=== PATIENT | female | born 1950 | race Caucasian/White ===

== ENCOUNTER 2022-12-30 23:45 | Inpatient (IN) | payer MEDICARE, OTHER ==
[~2022-12-30] VITALS: Ht 157.5 cm; Wt 53.1 kg
[2022-12-31] VITALS (8 sets, daily range): BP systolic 117–135; BP diastolic 43–58; TEMP 97–98.3; O2SAT 95–96
[2022-12-31] MEDS ORDERED: ATOR40TA PO (00:33)
[2022-12-31] MEDS ORDERED: METF-440 PO (00:33)
[2022-12-31] MEDS ORDERED: FERR325T28 PO (00:33)
[2022-12-31] MEDS ORDERED: OMEP40CA21 PO (00:33)
[2022-12-31] MEDS ORDERED: AMLO-212 PO (00:33)
[2022-12-31] MEDS ORDERED: LOSA25TA27 PO (00:33)
[2022-12-31] MEDS ORDERED: FAMO40TA7 PO (00:33)
[2022-12-31] MEDS ORDERED: LORA0.5T48 PO (00:33)
[2022-12-31] MEDS ORDERED: VIT1TABL46 PO (00:33)
[2022-12-31] MEDS ORDERED: LINA5TAB PO (00:33)
[2022-12-31] MEDS ORDERED: ONDANSETRON 4 MG/2 ML VIAL ONE (00:38)
[2022-12-31] MEDS ORDERED: HYDROMORPHONE 1 MG/1 ML DISP.SYRIN ONE ×2 (00:39→02:19)
[2022-12-31] MEDS ORDERED: ONDANSETRON 4 MG/2 ML VIAL IV ONE (00:45)
[2022-12-31] MEDS ORDERED: HYDROMORPHONE 1 MG/1 ML DISP.SYRIN IV ONE ×2 (00:45→02:30)
[2022-12-31] MEDS ORDERED: IV NORMAL SALINE 1000 ML BAG IV ONE (00:45)
[2022-12-31 00:50] LABS: BASOPHILS # (AUTO) 0.1 K/UL (0.0-0.2); DIFFERENTIAL COMMENT 1; HEMATOCRIT 34.1 % (31.2-41.9); HEMOGLOBIN 11.5 g/dL (10.9-14.3); LYMPHOCYTES # (AUTO) 1.4 K/uL (0.8-4.8); LYMPHOCYTES % (AUTO) 16.6 % (20.5-51.5); MEAN CORPUSCULAR HGB CONC 34 g/dL (32.3-35.6); MEAN CORPUSCULAR VOLUME 89.2 fL (75.5-95.3); MONOCYTES # (AUTO) 0.5 K/uL (0.1-1.30); MONOCYTES % (AUTO) 5.5 % (0.0-11.0); NEUTROPHILS # (AUTO) 6.4 K/uL (1.8-8.9); NEUTROPHILS % (AUTO) 76.9 % (38.5-71.5); PLATELET COUNT (AUTO) 292 K/uL (179-408); RED BLOOD CELL COUNT(AUTO) 3.82 MIL/uL (3.63-4.92); RED CELL DISTRIBUTION WIDTH 13.1 % (12.3-17.7); WHITE BLOOD COUNT (AUTO) 8.3 K/uL (3.8-11.8)
[2022-12-31 01:01] LABS: *BILIRUBIN,URIN NEGATIVE (NEGATIVE); *BLOOD, URINE NEGATIVE (NEGATIVE); *CLARITY,URINE CLEAR (CLEAR); *COLOR,URINE YELLOW (YELLOW); *KETONES,URINE 2+ (NEGATIVE); *PROTEIN,URINE 2+ (NEGATIVE); *UROBILINOGEN,URINE 0.2 E.U./dl (NORMAL); LEUKOCYTE ESTERASE ,URINE NEGATIVE (NEGATIVE); NITRITE, URINE NEGATIVE (NEGATIVE); UGLUCOSE NEGATIVE (NEGATIVE)
[2022-12-31 01:02] LABS: BACTERIA,URINE NONE SEEN /HPF (NONE SEEN); RBC,URINE 0-3 /HPF (0-3); SQUAMOUS EPITHELIAL CELL,UR FEW /HPF (NONE SEEN); WBC,URINE NONE SEEN /HPF (0-3)
[2022-12-31 01:05] LABS: CALCIUM 8.9 mg/dL (8.5-10.1); CARBON DIOXIDE 27 mmol/L (21-32); CHLORIDE 95 mmol/L (98-107); CREATININE 1.3 mg/dL (0.6-1.3); GLUCOSE 153 mg/dL (74-106); POTASSIUM 4.7 mmol/L (3.5-5.1); SODIUM SERUM 129 mmol/L (136-145); UREA NITROGEN, BLOOD 14 mg/dL (7-18)
[2022-12-31 01:12] LABS: ALANINE AMINOTRANSFERASE 83 U/L (14-59); ALBUMIN 3.2 g/dL (3.4-5.0); ALKALINE PHOSPHATASE 107 U/L (50-136); ASPARTATE AMINOTRANSFERASE 95 U/L (15-37); BILIRUBIN,DIRECT 0.1 mg/dL (0.0-0.2); BILIRUBIN,TOTAL 0.3 mg/dL (0.2-1.0); LIPASE 200 U/L (73-393); TOTAL PROTEIN, SERUM 7.1 g/dL (6.4-8.2)
[2022-12-31] MEDS ORDERED: CHOLECALCIFEROL 1,000 UNIT TABLET ONE (02:17)
[2022-12-31] MEDS ORDERED: MAGNESIUM HYDROXIDE 30 ML LIQUID UDC PO PRN (02:30)
[2022-12-31] MEDS ORDERED: DEXTROSE 50% 50 ML DISP.SYRIN IV PRN (02:30)
[2022-12-31] MEDS ORDERED: MORPHINE SULFATE 2 MG/1 ML DISP.SYRIN IV PRN (02:30)
[2022-12-31] MEDS ORDERED: REMEDY ESSENTIAL ZINC PASTE 113 GM TP PRN (02:30)
[2022-12-31] MEDS: CHOLECALCIFEROL 1,000 UNIT TABLET PO SCH ×2 (02:40→09:10)
[2022-12-31] MEDS: DEXAMETHASONE SOD PHOSPHATE 10 MG INJ IV SCH (05:44)
[2022-12-31] MEDS: BLOOD SUGAR DIAGNOSTIC 1 EACH STRIP VI SCH ×4 (06:40→20:30)
[2022-12-31] MEDS: ENOXAPARIN SODIUM 40 MG/0.4 ML DISP.SYRIN SQ SCH (09:12)
[2022-12-31] MEDS: CEFTRIAXONE 1 G in IV DEXTROSE 5% 50 ML IV SCH (11:36)
[2022-12-31] MEDS: AZITHROMYCIN IV 500 MG in IV DEXTROSE 5% 250 ML IV SCH (12:13)
[2022-12-31] MEDS: INSULIN REGULAR, HUMAN 300 UNIT/3 ML VIAL SQ PRN ×2 (12:16→17:10)
[2022-12-31] MEDS ORDERED: REMDESIVIR (CHARGED) 200 MG in IV NORMAL SALINE 210 ML IV ONE (13:00)
[2022-12-31] MEDS ORDERED: LOPERAMIDE HCL 2 MG CAPSULE PO ONE (16:00)
[2022-12-31] MEDS: FERROUS SULFATE 325 MG TABEC PO SCH (17:07)
[2022-12-31] MEDS: METFORMIN HCL 500 MG TABLET PO SCH ×2 (17:07→18:00)
[2022-12-31] MEDS: LOSARTAN POTASSIUM 25 MG TABLET PO SCH (17:08)
[2022-12-31] MEDS: LORAZEPAM 1 MG TABLET PO SCH (20:32)
[2022-12-31] MEDS: ONDANSETRON 4 MG/2 ML VIAL IV PRN (20:43)
[2022-12-31] MEDS ORDERED: LORAZEPAM 0.5 MG TABLET PO SCH (21:00)
[2023-01-01] VITALS (7 sets, daily range): BP systolic 101–135; BP diastolic 43–65; TEMP 97.5–98; O2SAT 94–96
[2023-01-01 05:46] LABS: *SODIUM RNDM,URINE 37 mmol/L (40-220)
[2023-01-01] MEDS: DEXAMETHASONE SOD PHOSPHATE 10 MG INJ IV SCH (05:56)
[2023-01-01] MEDS: PANTOPRAZOLE SODIUM 40 MG TABLET.DR PO SCH (05:57)
[2023-01-01] MEDS: BLOOD SUGAR DIAGNOSTIC 1 EACH STRIP VI SCH ×4 (07:04→21:49)
[2023-01-01 07:26] LABS: BASOPHILS % (AUTO) 0.1 % (0.0-2.0); HEMATOCRIT 31.2 % (31.2-41.9); HEMOGLOBIN 10.6 g/dL (10.9-14.3); LYMPHOCYTES % (AUTO) 9.1 % (20.5-51.5); MEAN CORPUSCULAR HEMOGLOBIN 30.3 uug (24.7-32.8); MEAN CORPUSCULAR HGB CONC 34 g/dL (32.3-35.6); MEAN CORPUSCULAR VOLUME 89.2 fL (75.5-95.3); MONOCYTES # (AUTO) 0.6 K/uL (0.1-1.30); MONOCYTES % (AUTO) 4.9 % (0.0-11.0); NEUTROPHILS # (AUTO) 9.7 K/uL (1.8-8.9); NEUTROPHILS % (AUTO) 85.9 % (38.5-71.5); PLATELET COUNT (AUTO) 301 K/uL (179-408); RED BLOOD CELL COUNT(AUTO) 3.49 MIL/uL (3.63-4.92); RED CELL DISTRIBUTION WIDTH 12.8 % (12.3-17.7); WHITE BLOOD COUNT (AUTO) 11.3 K/uL (3.8-11.8)
[2023-01-01 07:34] LABS: DIFFERENTIAL COMMENT 1
[2023-01-01 07:56] LABS: ALANINE AMINOTRANSFERASE 92 U/L (14-59); ALBUMIN 2.7 g/dL (3.4-5.0); ALKALINE PHOSPHATASE 90 U/L (50-136); ASPARTATE AMINOTRANSFERASE 84 U/L (15-37); BILIRUBIN,DIRECT 0.1 mg/dL (0.0-0.2); C-REACTIVE PROTEIN 3.1 mg/dL (0.0-0.9); CALCIUM 8.4 mg/dL (8.5-10.1); CARBON DIOXIDE 24 mmol/L (21-32); CHLORIDE 103 mmol/L (98-107); CREATININE 1.4 mg/dL (0.6-1.3); GLUCOSE 133 mg/dL (74-106); LACTATE DEHYDROGENASE 282 U/L (81-234); MAGNESIUM 2.1 mg/dL (1.8-2.4); PHOSPHOROUS 4.8 mg/dL (2.5-4.9); POTASSIUM 4.5 mmol/L (3.5-5.1); SODIUM SERUM 137 mmol/L (136-145); UREA NITROGEN, BLOOD 19 mg/dL (7-18); URIC ACID 4.8 mg/dL (2.6-6.0)
[2023-01-01 08:24] LABS: THYROID STIMULATING HORMONE 0.232 mIU/mL (0.358-3.740)
[2023-01-01] MEDS: METFORMIN HCL 500 MG TABLET PO SCH ×2 (08:51→17:23)
[2023-01-01] MEDS: LINAGLIPTIN 5 MG TABLET PO SCH (08:51)
[2023-01-01] MEDS: CHOLECALCIFEROL 1,000 UNIT TABLET PO SCH (08:51)
[2023-01-01] MEDS: LOSARTAN POTASSIUM 25 MG TABLET PO SCH ×2 (08:52→16:20)
[2023-01-01] MEDS: FOLIC ACID/VITAMIN B COMP W-C TABLET PO SCH (08:52)
[2023-01-01] MEDS: AMLODIPINE 5 MG TABLET PO SCH (08:52)
[2023-01-01] MEDS: FERROUS SULFATE 325 MG TABEC PO SCH ×2 (08:52→16:20)
[2023-01-01 08:54] LABS: BILIRUBIN,TOTAL 0.2 mg/dL (0.2-1.0)
[2023-01-01] MEDS: ENOXAPARIN SODIUM 40 MG/0.4 ML DISP.SYRIN SQ SCH (08:56)
[2023-01-01] MEDS ORDERED: LINAGLIPTIN 5 MG TABLET PO SCH (09:00)
[2023-01-01] MEDS: AZITHROMYCIN IV 500 MG in IV DEXTROSE 5% 250 ML IV SCH (11:21)
[2023-01-01] MEDS: CEFTRIAXONE 1 G in IV DEXTROSE 5% 50 ML IV SCH (11:21)
[2023-01-01] MEDS: INSULIN REGULAR, HUMAN 300 UNIT/3 ML VIAL SQ PRN ×2 (11:39→17:23)
[2023-01-01] MEDS: REMDESIVIR (CHARGED) 100 MG in IV NORMAL SALINE 100 ML IV SCH (13:05)
[2023-01-01] MEDS: ACETAMINOPHEN 325 MG TABLET PO PRN (16:20)
[2023-01-01] MEDS: ONDANSETRON 4 MG/2 ML VIAL IV PRN ×2 (16:21→21:50)
[2023-01-01] MEDS: LORAZEPAM 1 MG TABLET PO SCH (21:50)
[2023-01-02] VITALS: BP 106/48; TEMP 97.8; O2SAT 96
[2023-01-02 04:00] VITALS: BP 109/48; TEMP 98.4; O2SAT 94
[2023-01-02] MEDS: DEXAMETHASONE SOD PHOSPHATE 10 MG INJ IV SCH (05:03)
[2023-01-02] MEDS: BLOOD SUGAR DIAGNOSTIC 1 EACH STRIP VI SCH ×4 (06:30→21:04)
[2023-01-02] MEDS: PANTOPRAZOLE SODIUM 40 MG TABLET.DR PO SCH (06:30)
[2023-01-02] MEDS: INSULIN REGULAR, HUMAN 300 UNIT/3 ML VIAL SQ PRN ×3 (06:38→18:39)
[2023-01-02 06:57] LABS: BASOPHILS % (AUTO) 0.1 % (0.0-2.0); HEMATOCRIT 31.8 % (31.2-41.9); HEMOGLOBIN 10.6 g/dL (10.9-14.3); LYMPHOCYTES % (AUTO) 7.3 % (20.5-51.5); MEAN CORPUSCULAR HEMOGLOBIN 29.4 uug (24.7-32.8); MEAN CORPUSCULAR HGB CONC 33 g/dL (32.3-35.6); MEAN CORPUSCULAR VOLUME 88.5 fL (75.5-95.3); MONOCYTES # (AUTO) 0.6 K/uL (0.1-1.30); MONOCYTES % (AUTO) 4.3 % (0.0-11.0); NEUTROPHILS # (AUTO) 11.6 K/uL (1.8-8.9); NEUTROPHILS % (AUTO) 88.3 % (38.5-71.5); PLATELET COUNT (AUTO) 360 K/uL (179-408); RED CELL DISTRIBUTION WIDTH 13.1 % (12.3-17.7); WHITE BLOOD COUNT (AUTO) 13.1 K/uL (3.8-11.8)
[2023-01-02 07:21] LABS: DIFFERENTIAL COMMENT 1
[2023-01-02 07:32] LABS: ALANINE AMINOTRANSFERASE 75 U/L (14-59); ALBUMIN 2.7 g/dL (3.4-5.0); ALKALINE PHOSPHATASE 91 U/L (50-136); ASPARTATE AMINOTRANSFERASE 49 U/L (15-37); BILIRUBIN,DIRECT 0.1 mg/dL (0.0-0.2); BILIRUBIN,TOTAL 0.3 mg/dL (0.2-1.0); CALCIUM 8.5 mg/dL (8.5-10.1); CARBON DIOXIDE 23 mmol/L (21-32); CREATININE 1.4 mg/dL (0.6-1.3); GLUCOSE 161 mg/dL (74-106); TOTAL PROTEIN, SERUM 6.2 g/dL (6.4-8.2); UREA NITROGEN, BLOOD 34 mg/dL (7-18)
[2023-01-02 07:37] LABS: CHLORIDE 100 mmol/L (98-107); POTASSIUM 4.5 mmol/L (3.5-5.1); SODIUM SERUM 133 mmol/L (136-145)
[2023-01-02] MEDS: CHOLECALCIFEROL 1,000 UNIT TABLET PO SCH (09:09)
[2023-01-02] MEDS: FERROUS SULFATE 325 MG TABEC PO SCH ×2 (09:09→18:22)
[2023-01-02] MEDS: LOSARTAN POTASSIUM 25 MG TABLET PO SCH ×2 (09:12→18:22)
[2023-01-02] MEDS: METFORMIN HCL 500 MG TABLET PO SCH ×2 (09:12→18:22)
[2023-01-02] MEDS: FOLIC ACID/VITAMIN B COMP W-C TABLET PO SCH (09:12)
[2023-01-02] MEDS: LINAGLIPTIN 5 MG TABLET PO SCH (09:12)
[2023-01-02] MEDS: ENOXAPARIN SODIUM 30 MG/0.3 ML DISP.SYRIN SUBCUT SCH (09:12)
[2023-01-02] MEDS: AMLODIPINE 5 MG TABLET PO SCH (09:13)
[2023-01-02 12:00] VITALS: BP 105/45; TEMP 98.1; O2SAT 94
[2023-01-02] MEDS: REMDESIVIR (CHARGED) 100 MG in IV NORMAL SALINE 100 ML IV SCH (13:28)
[2023-01-02] MEDS: AZITHROMYCIN IV 500 MG in IV DEXTROSE 5% 250 ML IV SCH (13:28)
[2023-01-02] MEDS: CEFTRIAXONE 1 G in IV DEXTROSE 5% 50 ML IV SCH (13:28)
[2023-01-02 16:00] VITALS: BP 109/48; TEMP 97.7; O2SAT 93
[2023-01-02 16:12] VITALS: O2SAT 96
[2023-01-02] MEDS: GLUCERNA SHAKE 237 ML CAN PO SCH (17:00)
[2023-01-02] MEDS: ONDANSETRON 4 MG/2 ML VIAL IV PRN (18:22)
[2023-01-02] MEDS: ACETAMINOPHEN 325 MG TABLET PO PRN (19:04)
[2023-01-02 20:00] VITALS: BP 115/96; TEMP 97.2; O2SAT 93
[2023-01-02] MEDS: LORAZEPAM 1 MG TABLET PO SCH (20:36)
[2023-01-03] VITALS: BP 105/59; TEMP 97.5; O2SAT 94
[2023-01-03 04:00] VITALS: BP 111/63; TEMP 97.8; O2SAT 93
[2023-01-03] MEDS: DEXAMETHASONE SOD PHOSPHATE 10 MG INJ IV SCH (05:54)
[2023-01-03] MEDS: PANTOPRAZOLE SODIUM 40 MG TABLET.DR PO SCH (06:13)
[2023-01-03] MEDS: BLOOD SUGAR DIAGNOSTIC 1 EACH STRIP VI SCH ×4 (06:27→20:52)
[2023-01-03 06:56] LABS: BASOPHILS % (AUTO) 0.1 % (0.0-2.0); HEMOGLOBIN 11.7 g/dL (10.9-14.3); LYMPHOCYTES % (AUTO) 15.4 % (20.5-51.5); MEAN CORPUSCULAR HEMOGLOBIN 29.9 uug (24.7-32.8); MEAN CORPUSCULAR HGB CONC 34 g/dL (32.3-35.6); MEAN CORPUSCULAR VOLUME 89.2 fL (75.5-95.3); MONOCYTES % (AUTO) 7.4 % (0.0-11.0); NEUTROPHILS % (AUTO) 77.1 % (38.5-71.5); PLATELET COUNT (AUTO) 466 K/uL (179-408); RED BLOOD CELL COUNT(AUTO) 3.92 MIL/uL (3.63-4.92); RED CELL DISTRIBUTION WIDTH 13.2 % (12.3-17.7)
[2023-01-03 07:47] LABS: ALANINE AMINOTRANSFERASE 74 U/L (14-59); ALKALINE PHOSPHATASE 94 U/L (50-136); ASPARTATE AMINOTRANSFERASE 33 U/L (15-37); BILIRUBIN,DIRECT 0.1 mg/dL (0.0-0.2); BILIRUBIN,TOTAL 0.2 mg/dL (0.2-1.0); CALCIUM 9.2 mg/dL (8.5-10.1); CARBON DIOXIDE 25 mmol/L (21-32); CHLORIDE 101 mmol/L (98-107); CREATININE 1.5 mg/dL (0.6-1.3); GLUCOSE 147 mg/dL (74-106); POTASSIUM 4.3 mmol/L (3.5-5.1); SODIUM SERUM 136 mmol/L (136-145); TOTAL PROTEIN, SERUM 6.8 g/dL (6.4-8.2); UREA NITROGEN, BLOOD 34 mg/dL (7-18)
[2023-01-03 08:00] VITALS: BP 111/63; TEMP 98; O2SAT 93
[2023-01-03 08:06] LABS: DIFFERENTIAL COMMENT 1
[2023-01-03] MEDS: GLUCERNA SHAKE 237 ML CAN PO SCH ×2 (09:29→17:19)
[2023-01-03] MEDS: FOLIC ACID/VITAMIN B COMP W-C TABLET PO SCH (09:29)
[2023-01-03] MEDS: LINAGLIPTIN 5 MG TABLET PO SCH (09:29)
[2023-01-03] MEDS: AMLODIPINE 5 MG TABLET PO SCH (09:30)
[2023-01-03] MEDS: CHOLECALCIFEROL 1,000 UNIT TABLET PO SCH (09:30)
[2023-01-03] MEDS: FERROUS SULFATE 325 MG TABEC PO SCH ×2 (09:30→17:18)
[2023-01-03] MEDS: LOSARTAN POTASSIUM 25 MG TABLET PO SCH ×2 (09:30→17:18)
[2023-01-03] MEDS: METFORMIN HCL 500 MG TABLET PO SCH ×2 (09:34→17:18)
[2023-01-03] MEDS: ENOXAPARIN SODIUM 30 MG/0.3 ML DISP.SYRIN SUBCUT SCH (09:35)
[2023-01-03 11:30] VITALS: BP 106/42; TEMP 97.6; O2SAT 98
[2023-01-03] MEDS: CEFTRIAXONE 1 G in IV DEXTROSE 5% 50 ML IV SCH (12:12)
[2023-01-03] MEDS: AZITHROMYCIN IV 500 MG in IV DEXTROSE 5% 250 ML IV SCH (12:57)
[2023-01-03] MEDS: INSULIN REGULAR, HUMAN 300 UNIT/3 ML VIAL SQ PRN ×2 (13:02→17:52)
[2023-01-03] MEDS: REMDESIVIR (CHARGED) 100 MG in IV NORMAL SALINE 100 ML IV SCH (14:27)
[2023-01-03 16:00] VITALS: BP 107/48; TEMP 98.2; O2SAT 93
[2023-01-03] MEDS: ACETAMINOPHEN 325 MG TABLET PO PRN (18:07)
[2023-01-03] MEDS: ONDANSETRON 4 MG/2 ML VIAL IV PRN (19:17)
[2023-01-03 20:00] VITALS: BP 108/42; TEMP 98.2; O2SAT 96
[2023-01-03] MEDS: LORAZEPAM 1 MG TABLET PO SCH (20:21)
[2023-01-04] VITALS (7 sets, daily range): BP systolic 104–121; BP diastolic 44–64; TEMP 97.4–98.2; O2SAT 93–96
[2023-01-04] MEDS: DEXAMETHASONE SOD PHOSPHATE 10 MG INJ IV SCH (04:16)
[2023-01-04] MEDS: PANTOPRAZOLE SODIUM 40 MG TABLET.DR PO SCH (06:12)
[2023-01-04] MEDS: BLOOD SUGAR DIAGNOSTIC 1 EACH STRIP VI SCH ×4 (06:36→21:34)
[2023-01-04] MEDS: METFORMIN HCL 500 MG TABLET PO SCH ×2 (07:57→17:31)
[2023-01-04] MEDS: GLUCERNA SHAKE 237 ML CAN PO SCH ×2 (07:57→17:30)
[2023-01-04 09:05] LABS: BASOPHILS # (AUTO) 0.1 K/UL (0.0-0.2); BASOPHILS % (AUTO) 0.6 % (0.0-2.0); HEMATOCRIT 30.9 % (31.2-41.9); HEMOGLOBIN 10.3 g/dL (10.9-14.3); LYMPHOCYTES # (AUTO) 0.6 K/uL (0.8-4.8); LYMPHOCYTES % (AUTO) 3.1 % (20.5-51.5); MEAN CORPUSCULAR HEMOGLOBIN 29.5 uug (24.7-32.8); MEAN CORPUSCULAR HGB CONC 33 g/dL (32.3-35.6); MEAN CORPUSCULAR VOLUME 88.7 fL (75.5-95.3); MONOCYTES # (AUTO) 0.6 K/uL (0.1-1.30); NEUTROPHILS # (AUTO) 17.9 K/uL (1.8-8.9); NEUTROPHILS % (AUTO) 93.3 % (38.5-71.5); PLATELET COUNT (AUTO) 452 K/uL (179-408); RED BLOOD CELL COUNT(AUTO) 3.49 MIL/uL (3.63-4.92); RED CELL DISTRIBUTION WIDTH 12.8 % (12.3-17.7); WHITE BLOOD COUNT (AUTO) 19.2 K/uL (3.8-11.8)
[2023-01-04 09:11] LABS: DIFFERENTIAL COMMENT 1
[2023-01-04 09:24] LABS: ALANINE AMINOTRANSFERASE 66 U/L (14-59); ALBUMIN 2.7 g/dL (3.4-5.0); ALKALINE PHOSPHATASE 81 U/L (50-136); ASPARTATE AMINOTRANSFERASE 35 U/L (15-37); BILIRUBIN,DIRECT 0.1 mg/dL (0.0-0.2); BILIRUBIN,TOTAL 0.3 mg/dL (0.2-1.0); CALCIUM 8.2 mg/dL (8.5-10.1); CARBON DIOXIDE 22 mmol/L (21-32); CHLORIDE 100 mmol/L (98-107); CREATININE 1.3 mg/dL (0.6-1.3); GLUCOSE 172 mg/dL (74-106); POTASSIUM 4.5 mmol/L (3.5-5.1); SODIUM SERUM 133 mmol/L (136-145); TOTAL PROTEIN, SERUM 5.7 g/dL (6.4-8.2); UREA NITROGEN, BLOOD 33 mg/dL (7-18)
[2023-01-04] MEDS: LINAGLIPTIN 5 MG TABLET PO SCH (09:41)
[2023-01-04] MEDS: ENOXAPARIN SODIUM 30 MG/0.3 ML DISP.SYRIN SUBCUT SCH (09:41)
[2023-01-04] MEDS: AMLODIPINE 5 MG TABLET PO SCH (09:42)
[2023-01-04] MEDS: FERROUS SULFATE 325 MG TABEC PO SCH ×2 (09:42→16:47)
[2023-01-04] MEDS: FOLIC ACID/VITAMIN B COMP W-C TABLET PO SCH (09:42)
[2023-01-04] MEDS: LOSARTAN POTASSIUM 25 MG TABLET PO SCH ×2 (09:43→16:47)
[2023-01-04] MEDS: CHOLECALCIFEROL 1,000 UNIT TABLET PO SCH (09:43)
[2023-01-04] MEDS: CEFTRIAXONE 1 G in IV DEXTROSE 5% 50 ML IV SCH (11:07)
[2023-01-04] MEDS: INSULIN REGULAR, HUMAN 300 UNIT/3 ML VIAL SQ PRN ×3 (11:45→21:51)
[2023-01-04] MEDS: AZITHROMYCIN IV 500 MG in IV DEXTROSE 5% 250 ML IV SCH (11:50)
[2023-01-04] MEDS: REMDESIVIR (CHARGED) 100 MG in IV NORMAL SALINE 100 ML IV SCH (13:53)
[2023-01-04] MEDS: ONDANSETRON 4 MG/2 ML VIAL IV PRN (16:46)
[2023-01-04] MEDS: ACETAMINOPHEN 325 MG TABLET PO PRN ×2 (16:47→21:51)
[2023-01-04] MEDS: LORAZEPAM 1 MG TABLET PO SCH (20:56)
[2023-01-04] MEDS: DICYCLOMINE HCL 10 MG CAPSULE PO PRN (21:51)
[2023-01-04] MEDS: LOPERAMIDE HCL 2 MG CAPSULE PO PRN (21:55)
[2023-01-05 01:49] VITALS: O2SAT 95
[2023-01-05 04:00] VITALS: BP 118/54; TEMP 97.8; O2SAT 93
[2023-01-05] MEDS: DEXAMETHASONE SOD PHOSPHATE 10 MG INJ IV SCH (05:25)
[2023-01-05] MEDS: PANTOPRAZOLE SODIUM 40 MG TABLET.DR PO SCH (06:11)
[2023-01-05] MEDS: BLOOD SUGAR DIAGNOSTIC 1 EACH STRIP VI SCH ×4 (07:22→20:51)
[2023-01-05] MEDS: FERROUS SULFATE 325 MG TABEC PO SCH ×2 (08:43→17:18)
[2023-01-05] MEDS: METFORMIN HCL 500 MG TABLET PO SCH ×2 (08:43→17:20)
[2023-01-05] MEDS: FOLIC ACID/VITAMIN B COMP W-C TABLET PO SCH (08:43)
[2023-01-05] MEDS: CHOLECALCIFEROL 1,000 UNIT TABLET PO SCH (08:43)
[2023-01-05] MEDS: LINAGLIPTIN 5 MG TABLET PO SCH (08:43)
[2023-01-05] MEDS: LOSARTAN POTASSIUM 25 MG TABLET PO SCH ×2 (09:00→18:01)
[2023-01-05] MEDS: ENOXAPARIN SODIUM 30 MG/0.3 ML DISP.SYRIN SUBCUT SCH (09:00)
[2023-01-05] MEDS: AMLODIPINE 5 MG TABLET PO SCH (09:00)
[2023-01-05] MEDS: GLUCERNA SHAKE 237 ML CAN PO SCH ×2 (09:15→17:19)
[2023-01-05] MEDS: LOPERAMIDE HCL 2 MG CAPSULE PO PRN (10:34)
[2023-01-05] MEDS: CEFTRIAXONE 1 G in IV DEXTROSE 5% 50 ML IV SCH (11:15)
[2023-01-05 11:50] VITALS: BP 99/42; TEMP 97.9; O2SAT 93
[2023-01-05] MEDS: INSULIN REGULAR, HUMAN 300 UNIT/3 ML VIAL SQ PRN ×2 (12:06→16:52)
[2023-01-05 13:30] VITALS: O2SAT 93
[2023-01-05 16:00] VITALS: BP 113/44; TEMP 98.1; O2SAT 93
[2023-01-05] MEDS: ONDANSETRON 4 MG/2 ML VIAL IV PRN (18:14)
[2023-01-05] MEDS: LORAZEPAM 1 MG TABLET PO SCH (20:54)
[2023-01-05 21:00] VITALS: BP 130/56; TEMP 97.6; O2SAT 94
[2023-01-06] MEDS: DEXAMETHASONE SOD PHOSPHATE 10 MG INJ IV SCH (05:26)
[2023-01-06 05:29] VITALS: O2SAT 95
[2023-01-06 06:00] VITALS: BP 101/39; TEMP 97.8
[2023-01-06] MEDS: PANTOPRAZOLE SODIUM 40 MG TABLET.DR PO SCH (06:35)
[2023-01-06] MEDS: BLOOD SUGAR DIAGNOSTIC 1 EACH STRIP VI SCH ×4 (07:27→21:17)
[2023-01-06 07:52] LABS: CALCIUM 8.8 mg/dL (8.5-10.1); CREATININE 1.3 mg/dL (0.6-1.3); POTASSIUM 4.5 mmol/L (3.5-5.1)
[2023-01-06] MEDS: GLUCERNA SHAKE 237 ML CAN PO SCH ×2 (08:00→17:27)
[2023-01-06 08:21] LABS: BASOPHILS % (AUTO) 0.2 % (0.0-2.0); EOSINOPHILS % (AUTO) 0.1 % (0.0-7.0); HEMATOCRIT 32.1 % (31.2-41.9); HEMOGLOBIN 10.7 g/dL (10.9-14.3); LYMPHOCYTES # (AUTO) 1.3 K/uL (0.8-4.8); LYMPHOCYTES % (AUTO) 11.2 % (20.5-51.5); MEAN CORPUSCULAR HEMOGLOBIN 29.7 uug (24.7-32.8); MEAN CORPUSCULAR HGB CONC 33 g/dL (32.3-35.6); MEAN CORPUSCULAR VOLUME 88.7 fL (75.5-95.3); MONOCYTES # (AUTO) 0.9 K/uL (0.1-1.30); MONOCYTES % (AUTO) 8.2 % (0.0-11.0); NEUTROPHILS % (AUTO) 80.3 % (38.5-71.5); PLATELET COUNT (AUTO) 523 K/uL (179-408); RED BLOOD CELL COUNT(AUTO) 3.61 MIL/uL (3.63-4.92); RED CELL DISTRIBUTION WIDTH 13.1 % (12.3-17.7); WHITE BLOOD COUNT (AUTO) 11.2 K/uL (3.8-11.8)
[2023-01-06 08:22] LABS: DIFFERENTIAL COMMENT 1
[2023-01-06] MEDS: ENOXAPARIN SODIUM 30 MG/0.3 ML DISP.SYRIN SUBCUT SCH (09:14)
[2023-01-06] MEDS: CHOLECALCIFEROL 1,000 UNIT TABLET PO SCH (09:14)
[2023-01-06] MEDS: FOLIC ACID/VITAMIN B COMP W-C TABLET PO SCH (09:14)
[2023-01-06] MEDS: FERROUS SULFATE 325 MG TABEC PO SCH ×2 (09:15→17:24)
[2023-01-06] MEDS: LINAGLIPTIN 5 MG TABLET PO SCH (09:15)
[2023-01-06] MEDS: METFORMIN HCL 500 MG TABLET PO SCH ×2 (09:15→17:24)
[2023-01-06] MEDS: AMLODIPINE 5 MG TABLET PO SCH (09:15)
[2023-01-06] MEDS: LOSARTAN POTASSIUM 25 MG TABLET PO SCH ×2 (09:15→17:24)
[2023-01-06 12:00] VITALS: O2SAT 95
[2023-01-06] MEDS: CEFTRIAXONE 1 G in IV DEXTROSE 5% 50 ML IV SCH (12:34)
[2023-01-06] MEDS: INSULIN REGULAR, HUMAN 300 UNIT/3 ML VIAL SQ PRN ×3 (12:52→20:32)
[2023-01-06] MEDS: ACETAMINOPHEN 325 MG TABLET PO PRN (17:33)
[2023-01-06 20:00] VITALS: BP 110/46; TEMP 97.7; O2SAT 98
[2023-01-06] MEDS: DICYCLOMINE HCL 10 MG CAPSULE PO PRN (20:21)
[2023-01-06] MEDS: LORAZEPAM 1 MG TABLET PO SCH (20:21)
[2023-01-06] MEDS ORDERED: ZOLPIDEM 5 MG TABLET PO PRN (22:15)
[2023-01-07 04:00] VITALS: BP 111/40; TEMP 97.8; O2SAT 96
[2023-01-07 04:16] VITALS: O2SAT 96
[2023-01-07] MEDS: DEXAMETHASONE SOD PHOSPHATE 10 MG INJ IV SCH (05:12)
[2023-01-07] MEDS: PANTOPRAZOLE SODIUM 40 MG TABLET.DR PO SCH (06:16)
[2023-01-07] MEDS: BLOOD SUGAR DIAGNOSTIC 1 EACH STRIP VI SCH ×3 (06:17→16:30)
[2023-01-07] MEDS: CHOLECALCIFEROL 1,000 UNIT TABLET PO SCH (08:28)
[2023-01-07] MEDS: FOLIC ACID/VITAMIN B COMP W-C TABLET PO SCH (08:28)
[2023-01-07] MEDS: LINAGLIPTIN 5 MG TABLET PO SCH (08:29)
[2023-01-07] MEDS: METFORMIN HCL 500 MG TABLET PO SCH ×2 (08:29→17:35)
[2023-01-07] MEDS: FERROUS SULFATE 325 MG TABEC PO SCH ×2 (08:29→17:36)
[2023-01-07] MEDS: AMLODIPINE 5 MG TABLET PO SCH (08:38)
[2023-01-07] MEDS: LOSARTAN POTASSIUM 25 MG TABLET PO SCH ×2 (08:40→17:43)
[2023-01-07] MEDS: GLUCERNA SHAKE 237 ML CAN PO SCH ×2 (08:41→17:36)
[2023-01-07] MEDS ORDERED: THIAMINE HCL 100 MG TABLET NG SCH (09:00)
[2023-01-07] MEDS ORDERED: MULTIVIT, IRON, MIN NO. 8, FA TABLET NG SCH (09:00)
[2023-01-07] MEDS ORDERED: FOLIC ACID 1 MG TABLET NG SCH (09:00)
[2023-01-07] MEDS ORDERED: ENOXAPARIN SODIUM 40 MG/0.4 ML DISP.SYRIN SQ SCH (09:00)
[2023-01-07] MEDS ORDERED: DEXA4TAB68 PO (11:31)
[2023-01-07] MEDS: INSULIN REGULAR, HUMAN 300 UNIT/3 ML VIAL SQ PRN ×2 (12:22→17:38)
[2023-01-07 16:10] VITALS: O2SAT 95
[2023-01-07] MEDS: DICYCLOMINE HCL 10 MG CAPSULE PO PRN (17:42)
[2023-01-07 17:43] VITALS: BP 110/43
== END 2023-01-07 18:55 | disposition home or self-care (01) | DRG 177 ==
LOC: ER 23:50 → TELE3 12-31 02:35 → MEDSURG3 01-03 09:01
PROVIDERS: ADMIT Internal Medicine; ATTEND Internal Medicine
PROC: XW033E5 Introduction of Remdesivir Anti-infective into Peripheral Vein, Percutaneous Approach, New Technology Group 5 (ICD-10-PCS; principal; 2022-12-31)
DX: U07.1 COVID-19 (principal); J12.82 Pneumonia due to coronavirus disease 2019; J96.01 Acute respiratory failure with hypoxia; E87.1 Hypo-osmolality and hyponatremia; R51.9 Headache, unspecified; A08.4 Viral intestinal infection, unspecified; E05.90 Thyrotoxicosis, unspecified without thyrotoxic crisis or storm; E78.5 Hyperlipidemia, unspecified; K21.9 Gastro-esophageal reflux disease without esophagitis; N18.9 Chronic kidney disease, unspecified; I12.9 Hypertensive chronic kidney disease with stage 1 through stage 4 chronic kidney disease, or unspecified chronic kidney disease; Z79.84 Long term (current) use of oral hypoglycemic drugs; E11.22 Type 2 diabetes mellitus with diabetic chronic kidney disease; R74.01 Elevation of levels of liver transaminase levels; E86.1 Hypovolemia
CPT/HCPCS: 36415; 71045; 83605; 83615; 83690; 83735; 84100; 84300; 84443; 84484; 84550; 85025; 85610; 85730; 86140; 89055; 93005; A4663; G0378; J0248; J0456; J0696; J1100; J1170; J1650; J1815; J2405; J7040; J7050